=== PATIENT | female | born 1980 | race Caucasian/White ===

== ENCOUNTER 2023-12-31 19:25 | Emergency (ER) | payer SELFPAY ==
[~2023-12-31] VITALS: Ht 172.7 cm; Wt 70.3 kg
[2023-12-31 19:35] VITALS: BP_SYST 128; PULSE 84; RESP 16; TEMP 98.3; O2SAT 98
== END 2023-12-31 20:58 | disposition left against medical advice (07) ==
LOC: SED 19:25
DX: R07.89 Other chest pain (principal); Z53.21 Procedure and treatment not carried out due to patient leaving prior to being seen by health care provider
CPT/HCPCS: 93005